=== PATIENT | female | born 1980 | race Caucasian/White ===

== ENCOUNTER 2016-06-22 18:30 | Emergency (ER) | payer OTHER | END 2016-06-22 20:12 | disposition left against medical advice (07) | LOC: UCCORT 18:30 | DX: R05 Cough (principal); R68.83 Chills (without fever); M79.1 Myalgia; Z53.21 Procedure and treatment not carried out due to patient leaving prior to being seen by health care provider | CPT/HCPCS: 99211; G0463 ==

== ENCOUNTER 2016-06-23 08:54 | Emergency (ER) | payer OTHER ==
[2016-06-23 09:23] VITALS: BP 117/86
--- NOTE | 2016-06-23 10:16 | UC ---
Throat Pain/Nasal Trey HPI - HPI Summary HPI Summary: complaint of nasal congestion, cough sore throat exhaustion, muscle achiness, headaches cold chills and shivering then sweating feels nauseous, denies vomiting and diarrhea took a cold and flu medication with minima relief of symptoms - History of Current Complaint Chief Complaint: UCRespiratory Stated Complaint: FLU SYMPTOMS Time Seen by Provider: 06/23/16 10:08 Hx Obtained From: Patient Hx Last Menstrual Period: 06/16/16 Cough: Nonproductive Associated Signs & Symptoms: Positive: Nasal Discharge - Allergies/Home Medications Allergies/Adverse Reactions: Allergies Allergy/AdvReac Type Severity Reaction Status Date / Time No Known Allergies Allergy Verified 06/23/16 09:19 Home Medications: Home Medications NK [No Home Medications Reported] 06/23/16 [History Confirmed 06/23/16] PMH/Surg Hx/FS Hx/Imm Hx Previously Healthy: Yes Endocrine History Of: Denies: Diabetes Cardiovascular History Of: Denies: Cardiac Disorders Respiratory History Of: Denies: Asthma - Surgical History Surgical History: Yes Surgery Procedure, Year, and Place: Tubal Ligation, 2014, [place] - Family History Known Family History: Negative: Cardiac Disease, Hypertension, Diabetes - Social History Occupation: Employed Full-time Lives: With Family Alcohol Use: None Substance Use Type: None Smoking Status (MU): Heavy Every Day Tobacco Smoker Type: Cigarettes Amount Used/How Often: <1 PPD Length of Time of Smoking/Using Tobacco: 20 Years Have You Smoked in the Last Year: Yes When Did the Patient Quit Smoking/Using Tobacco: 24 Years Household Exposure Type: Cigarettes - Immunization History Most Recent Influenza Vaccination: May 2016 Review of Systems Constitutional: Chills, Fatigue Skin: Negative Eyes: Negative ENT: Sore Throat, Nasal Discharge Respiratory: Cough Cardiovascular: Negative Gastrointestinal: Other - nausea Genitourinary: Negative Motor: Negative Neurovascular: Negative Musculoskeletal: Negative Neurological: Negative Psychological: Negative All Other Systems Reviewed And Are Negative: Yes Physical Exam Triage Information Reviewed: Yes Appearance: No Pain Distress, Well-Nourished Vital Signs: Initial Vital Signs Temp 98.3 F 06/23/16 09:16 Pulse 96 06/23/16 09:16 Resp 16 06/23/16 09:16 BP 117/86 06/23/16 09:16 Pulse Ox 98 06/23/16 09:16 Vital Signs Reviewed: Yes Eyes: Positive: Conjunctiva Clear ENT: Positive: Pharyngeal erythema, Nasal congestion, Nasal drainage, TMs normal. Negative: Tonsillar swelling, Tonsillar exudate Neck: Positive: No Lymphadenopathy Respiratory: Positive: Lungs clear, Normal breath sounds, No respiratory distress Cardiovascular: Positive: RRR, No Murmur, Pulses Normal Abdomen Description: Positive: Nontender, Soft Bowel Sounds: Positive: Present Musculoskeletal: Positive: No Edema Neurological: Positive: Alert Psychological Exam: Normal Skin Exam: Normal Throat Pain/Nasal Course/Dx - Course Course Of Treatment: exam completed. positive for influenza no signs of secondary infection. symptomatic treatment - Differential Dx/Diagnosis Differential Diagnosis/HQI/PQRI: Influenza, URI Provider Diagnoses: influenza Discharge - Discharge Plan Condition: Stable Disposition: HOME Patient Education Materials: Influenza (ED) Forms: *Work Release Referrals: No Primary Care Phys,NOPCP [Primary Care Provider] - [facility] [Outside] Additional Instructions: TREATING THE FLU (Influenza) What is the Flu? Influenza, or "flu," is an infection of the breathing tubes and lungs. Flu happens mostly in late fall, winter, or early spring. It is very easily spread from one person to another by coughing and sneezing. The flu affects people of all ages. Symptoms Might Include: Stuffed up or runny nose Cough which may be worse at night that lasts for one to two weeks Fever especially the first 2 days and which may go up and down Headache and muscle aches Mild sore throat Poor appetite Tiredness Influenza (Flu) Vaccine Much of the illness and caused by influenza can be prevented by annual flu vaccination. It is especially recommended for people who are at high risk. Those at higher risk include all people aged 65 years or older and people of any age with chronic diseases of the heart, lung or kidneys, diabetes, immunosuppression, or severe forms of anemia. Other high-risk groups are, women who will be more than 3 months during the flu season, and children. Treatment Recommendations: Take acetaminophen (Tylenol, etc.) for aches and fever. Do not ever give aspirin to children. Drink lots of fluids. Use a cool-mist humidifier night and day if it helps you. Keep room at a comfortable temperature for you. Do not overheat the room. Do not overdress. Do not smoke. Get as much rest as you can. Call Your Doctor or Return Here IF: You have a fever that lasts for more than three days. You have trouble breathing. You begin to cough up green, yellow, or red mucous. Your cough gets worse or you have chest pain with coughing or deep breathing. You start to have any other symptoms that worry you.
== END 2016-06-23 10:45 | disposition home or self-care (01) ==
LOC: UCCORT 08:54
DX: J11.1 Influenza due to unidentified influenza virus with other respiratory manifestations (principal); F17.210 Nicotine dependence, cigarettes, uncomplicated
CPT/HCPCS: 87502; 99211; G0463

== ENCOUNTER 2016-06-27 17:00 | Emergency (ER) | payer OTHER | END 2016-06-27 17:42 | disposition left against medical advice (07) | LOC: UCCORT 17:00 | DX: R19.7 Diarrhea, unspecified (principal); Z53.21 Procedure and treatment not carried out due to patient leaving prior to being seen by health care provider ==

== ENCOUNTER 2016-06-27 18:35 | Emergency (ER) | payer OTHER ==
[2016-06-27 19:19] VITALS: BP 124/83
[2016-06-27] MEDS ORDERED: Ondansetron ODT TAB* 4 MG PO ONE (20:13)
--- NOTE | 2016-06-27 20:17 | UC ---
UC General HPI - HPI Summary HPI Summary: flu last week was feelign better, developed vomiting and nasea, has chest congestion - History of Current Complaint Chief Complaint: UCGeneralIllness Stated Complaint: DIARRHEA, FEVER Time Seen by Provider: 06/27/16 20:08 Hx Obtained From: Patient Onset/Duration: Sudden Onset, Lasting Days Timing: Constant Onset Severity: Moderate Current Severity: Moderate - Allergy/Home Medications Allergies/Adverse Reactions: Allergies Allergy/AdvReac Type Severity Reaction Status Date / Time No Known Allergies Allergy Verified 06/27/16 19:18 PMH/Surg Hx/FS Hx/Imm Hx Previously Healthy: Yes Endocrine History Of: Denies: Diabetes Cardiovascular History Of: Denies: Cardiac Disorders Respiratory History Of: Denies: Asthma - Surgical History Surgical History: Yes Surgery Procedure, Year, and Place: Tubal Ligation, 2014, [place] - Family History Known Family History: Negative: Cardiac Disease, Hypertension, Diabetes - Social History Alcohol Use: None Substance Use Type: None Smoking Status (MU): Heavy Every Day Tobacco Smoker Type: Cigarettes Amount Used/How Often: <1 PPD Length of Time of Smoking/Using Tobacco: 20 Years Have You Smoked in the Last Year: Yes When Did the Patient Quit Smoking/Using Tobacco: 24 Years Household Exposure Type: Cigarettes - Immunization History Most Recent Influenza Vaccination: May 2016 Review of Systems Constitutional: Fever, Chills Eyes: Negative Respiratory: Cough Cardiovascular: Negative Gastrointestinal: Vomiting, Diarrhea Genitourinary: Negative Motor: Negative Neurovascular: Negative Musculoskeletal: Negative Neurological: Negative Psychological: Negative All Other Systems Reviewed And Are Negative: Yes Physical Exam Triage Information Reviewed: Yes Appearance: Well-Nourished, Ill-Appearing, Pain Distress Vital Signs: Initial Vital Signs Temp 98.2 F 06/27/16 19:14 Pulse 71 06/27/16 19:14 Resp 17 06/27/16 19:14 BP 124/83 06/27/16 19:14 Pulse Ox 100 06/27/16 19:14 Vital Signs Reviewed: Yes Eye Exam: Normal Eyes: Positive: Conjunctiva Clear ENT Exam: Normal ENT: Positive: Normal ENT inspection, Hearing grossly normal, Pharynx normal, TMs normal Dental Exam: Normal Neck exam: Normal Neck: Positive: Supple, Nontender, No Lymphadenopathy Respiratory Exam: Normal Respiratory: Positive: Chest non-tender, Lungs clear, Normal breath sounds Cardiovascular Exam: Normal Cardiovascular: Positive: RRR, No Murmur, Pulses Normal Abdomen Description: Positive: Nontender, No Organomegaly, Soft, Other: - epigastric tenderness, Bowel Sounds: Positive: Present Musculoskeletal Exam: Normal Musculoskeletal: Positive: Strength Intact, ROM Intact, No Edema Neurological Exam: Normal Neurological: Positive: Alert, Muscle Tone Normal Psychological Exam: Normal Skin Exam: Normal Course/Dx - Course Course Of Treatment: hx obtained, exam performed, meds given for nausea. - Differential Dx - Multi-Symptom Provider Diagnoses: nausea. vomiting Discharge - Discharge Plan Condition: Stable Disposition: HOME Prescriptions: Ondansetron [Zofran Odt] 4 mg PO Q8H PRN #28 tab PRN Reason: Nausea Patient Education Materials: Acute Nausea and Vomiting (ED) Forms: *Work Release Referrals: No Primary Care Phys,NOPCP [Primary Care Provider] - Additional Instructions: take the medication as prescribed, increase fluid intake as tolerated and get plenty of rest, I have included a note for work as needed.
== END 2016-06-27 20:40 | disposition home or self-care (01) ==
LOC: UCCORT 18:35
DX: R11.2 Nausea with vomiting, unspecified (principal); R09.89 Other specified symptoms and signs involving the circulatory and respiratory systems; Z87.891 Personal history of nicotine dependence
CPT/HCPCS: 99212; A9270-GY; G0463

== ENCOUNTER 2017-02-04 11:22 | Emergency (ER) | payer OTHER | END 2017-02-04 12:00 | disposition left against medical advice (07) | LOC: UCCORT 11:22 | DX: R09.81 Nasal congestion (principal); R05 Cough; J02.9 Acute pharyngitis, unspecified; Z53.21 Procedure and treatment not carried out due to patient leaving prior to being seen by health care provider ==

== ENCOUNTER 2017-02-11 16:09 | Emergency (ER) | payer OTHER ==
[2017-02-11 16:35] VITALS: BP 161/77
--- NOTE | 2017-02-11 17:04 | UC ---
Respiratory Complaint HPI - HPI Summary HPI Summary: 3 weeks of sinus pain headache nasal congestion nasal drip and cough - History of Current Complaint Chief Complaint: UCGeneralIllness Stated Complaint: COUGH,SINUS PRESSURE Time Seen by Provider: 02/11/17 16:39 Hx Obtained From: Patient Hx Last Menstrual Period: 06/17/16 ?: No Onset/Duration: Sudden Onset, Lasting Weeks - 3 Timing: Constant Severity Initially: Mild Severity Currently: Moderate Pain Intensity: 5 Pain Scale Used: 0-10 Numeric Character: Cough: Nonproductive Aggravating Factors: Nothing Alleviating Factors: Nothing Associated Signs And Symptoms: Positive: Nasal Congestion, Sinus Discomfort - Allergies/Home Medications Allergies/Adverse Reactions: Allergies Allergy/AdvReac Type Severity Reaction Status Date / Time No Known Allergies Allergy Verified 02/11/17 16:33 PMH/Surg Hx/FS Hx/Imm Hx Previously Healthy: Yes - Surgical History Surgical History: Yes Surgery Procedure, Year, and Place: Tubal Ligation, 2014, [place] - Family History Known Family History: Negative: Cardiac Disease, Hypertension, Diabetes - Social History Occupation: Unemployed Lives: With Family Alcohol Use: None Substance Use Type: None Smoking Status (MU): Heavy Every Day Tobacco Smoker Type: Cigarettes Amount Used/How Often: <1 PPD Length of Time of Smoking/Using Tobacco: 20 Years Have You Smoked in the Last Year: Yes Household Exposure Type: Cigarettes - Immunization History Most Recent Influenza Vaccination: May 2016 Review of Systems Constitutional: Negative Skin: Negative Eyes: Negative ENT: Negative Respiratory: Negative Cardiovascular: Negative Gastrointestinal: Negative Genitourinary: Negative Motor: Negative Neurovascular: Negative Musculoskeletal: Negative Neurological: Negative Psychological: Negative Is Patient Immunocompromised?: No All Other Systems Reviewed And Are Negative: Yes Physical Exam Triage Information Reviewed: Yes Appearance: Well-Appearing, No Pain Distress, Well-Nourished Vital Signs: Initial Vital Signs Temp 97.7 F 02/11/17 16:30 Pulse 82 02/11/17 16:30 Resp 14 02/11/17 16:30 BP 161/77 02/11/17 16:30 Pulse Ox 99 02/11/17 16:30 Vital Signs Reviewed: Yes Eye Exam: Normal Eyes: Positive: Conjunctiva Clear ENT Exam: Normal ENT: Positive: Normal ENT inspection, Hearing grossly normal, Pharynx normal, Nasal congestion, Nasal drainage, TMs normal. Negative: Tonsillar swelling, Tonsillar exudate, Trismus, Muffled/hoarse voice Dental Exam: Normal Neck exam: Normal Neck: Positive: Supple, Nontender, No Lymphadenopathy Respiratory Exam: Normal Respiratory: Positive: Chest non-tender, Lungs clear, Normal breath sounds, No respiratory distress, No accessory muscle use Cardiovascular Exam: Normal Cardiovascular: Positive: RRR, No Murmur, Pulses Normal, Brisk Capillary Refill Abdominal Exam: Normal Abdomen Description: Positive: Nontender, No Organomegaly, Soft Bowel Sounds: Positive: Present Musculoskeletal Exam: Normal Musculoskeletal: Positive: Strength Intact, ROM Intact, No Edema Neurological Exam: Normal Neurological: Positive: Alert, Muscle Tone Normal Psychological Exam: Normal Skin Exam: Normal UC Diagnostic Evaluation - Laboratory O2 Sat by Pulse Oximetry: 99 Respiratory Course/Dx - Course Course Of Treatment: Augmentin, flonase, increase fluids, follow with pcp - Differential Dx/Diagnosis Differential Diagnosis/HQI/PQRI: Bronchitis, Exacerbation Of COPD, Lower Resp Infection, MRSA, Sinusitis, Tuberculosis Provider Diagnoses: Acute rhinosinusitis Discharge - Discharge Plan Condition: Stable Disposition: HOME Prescriptions: Amoxicillin/Clavulanate TAB* [Augmentin TAB 875*] 875 mg PO BID #20 tab Fluticasone NASAL SPRAY 50MCG* [Flonase NASAL SPRAY 50MCG*] 2 spray BOTH NARES DAILY #1 btl Patient Education Materials: Sinusitis (ED), Hypertension (ED), How to Use Nasal [place] (ED) Referrals: [facility] [[facility]] - 2 Weeks
== END 2017-02-11 17:26 | disposition home or self-care (01) ==
LOC: UCCORT 16:09
DX: J01.90 Acute sinusitis, unspecified (principal); F17.210 Nicotine dependence, cigarettes, uncomplicated
CPT/HCPCS: 99212; G0463

== ENCOUNTER 2017-08-03 09:00 | Emergency (ER) | payer OTHER ==
[2017-08-03 09:35] VITALS: BP 117/62
--- NOTE | 2017-08-03 09:55 | UC ---
Throat Pain/Nasal Trey HPI - HPI Summary HPI Summary: 37 year old female with throat complaint. WOKE UP THIS MORNING WITH A SWOLLEN UVULA. took antihistamine and may have helped NO ISSUES BREATHING OR SWALLOWING THOUGH IT IS UNCOMFORTABLE TO SWALLOW. no SOB. No throat closing sensation. no ST. no fever. (+) children with GI bug at home. start metformin 3 days ago . no rash. no GI distress [ End ] - History of Current Complaint Chief Complaint: UCGeneralIllness Stated Complaint: SWOLLEN THROAT Time Seen by Provider: 08/03/17 09:48 Hx Obtained From: Patient Hx Last Menstrual Period: 07/30/17 ?: No Onset/Duration: Sudden Onset Pain Intensity: 0 Cough: Nonproductive - Allergies/Home Medications Allergies/Adverse Reactions: Allergies Allergy/AdvReac Type Severity Reaction Status Date / Time No Known Allergies Allergy Verified 02/11/17 16:33 Home Medications: Home Medications Oral Diabetetic Med 08/03/17 [History] diphenhydrAMINE HCl [Benadryl Allergy] 08/03/17 [History] PMH/Surg Hx/FS Hx/Imm Hx Previously Healthy: Yes Endocrine History: Diabetes - pre-DM - Surgical History Surgical History: Yes Surgery Procedure, Year, and Place: Tubal Ligation, 2014, [place] - Family History Known Family History: Negative: Cardiac Disease, Hypertension, Diabetes - Social History Occupation: Employed Full-time Lives: With Family Alcohol Use: None Substance Use Type: None Smoking Status (MU): Heavy Every Day Tobacco Smoker Type: Cigarettes Amount Used/How Often: <1 PPD Length of Time of Smoking/Using Tobacco: 20 Years Have You Smoked in the Last Year: Yes When Did the Patient Quit Smoking/Using Tobacco: 24 Years Household Exposure Type: Cigarettes Cessation Counseling: Patient Advised to Stop - Immunization History Most Recent Influenza Vaccination: May 2016 Review of Systems ENT: Other - swollen uvula Is Patient Immunocompromised?: No All Other Systems Reviewed And Are Negative: Yes Physical Exam Triage Information Reviewed: Yes Appearance: Well-Appearing, No Pain Distress, Well-Nourished Vital Signs: Initial Vital Signs Temp 97.8 F 08/03/17 09:26 Pulse 81 08/03/17 09:26 Resp 16 08/03/17 09:26 BP 117/62 08/03/17 09:26 Pulse Ox 99 03/22/18 09:26 Vital Signs Reviewed: Yes Eye Exam: Normal ENT: Positive: Tonsillar swelling, Uvula midline - moderately swollen. Negative : Pharyngeal erythema, Tonsillar exudate Neck exam: Normal Respiratory Exam: Normal Cardiovascular Exam: Normal Musculoskeletal Exam: Normal Neurological Exam: Normal Psychological Exam: Normal Skin Exam: Normal Throat Pain/Nasal Course/Dx - Course Course Of Treatment: pt aware of sx worsen then go to ED she is agreeable - Differential Dx/Diagnosis Differential Diagnosis/HQI/PQRI: Laryngitis, Peritonsillar Abscess, Pharyngitis , Tonsillitis, URI Provider Diagnoses: uvulitis Discharge - Sign-Out/Discharge Documenting (check all that apply): Discharge - Discharge Plan Condition: Good Disposition: HOME Prescriptions: Loratadine 10 mg PO DAILY #14 tablet methylPREDNISolone [Medrol Dosepak 4 MG*] 0 mg PO .SEE KLARISSA INSTRUCTION #1 tab Patient Education Materials: Uvulitis (ED) Referrals: Cece Simmons MD [Primary Care Provider] - 1 Day (Keep your appt please ) - Billing Disposition and Condition Condition: GOOD Disposition: HOME
== END 2017-08-03 10:11 | disposition home or self-care (01) ==
LOC: UCCORT 09:00
DX: F17.210 Nicotine dependence, cigarettes, uncomplicated (principal); R73.03 Prediabetes; Z79.84 Long term (current) use of oral hypoglycemic drugs; K12.2 Cellulitis and abscess of mouth
CPT/HCPCS: 99212; G0463

== ENCOUNTER 2017-10-28 11:50 | Emergency (ER) | payer OTHER ==
[2017-10-28 12:08] VITALS: BP 126/87
--- NOTE | 2017-10-28 13:19 | UC ---
Lower Extremity/Ankle HPI - HPI Summary HPI Summary: Pt c/o bilateral ankle pain after standing for prolonged periods of time. Pt has history of varicose vein in left inner leg from thigh to mid calf. Pt states that it has been more painful than usual over the last 1-2 weeks. - History of Current Complaint Chief Complaint: YOVANAkin Stated Complaint: LEFT LEG PAIN/BILATERAL ANKLE PAIN Time Seen by Provider: 10/28/17 12:27 Hx Obtained From: Patient Hx Last Menstrual Period: 09/27/17 Onset/Duration: Gradual Onset, Lasting Weeks, Still Present Severity Initially: Mild Severity Currently: Moderate Pain Intensity: 6 Pain Scale Used: 0-10 Numeric Aggravating Factor(s): Standing, Ambulation Alleviating Factor(s): Rest, Elevation, Ice Able to Bear Weight: Yes - Risk Factors Gout Risk Factors: Obesity DVT Risk Factors: Smoking - Allergies/Home Medications Allergies/Adverse Reactions: Allergies Allergy/AdvReac Type Severity Reaction Status Date / Time No Known Allergies Allergy Verified 10/28/17 12:08 PMH/Surg Hx/FS Hx/Imm Hx Previously Healthy: Yes - Surgical History Surgical History: Yes Surgery Procedure, Year, and Place: Tubal Ligation, 2014, [place] - Family History Known Family History: Negative: Cardiac Disease, Hypertension, Diabetes - Social History Occupation: Employed Full-time Lives: With Family Alcohol Use: None Substance Use Type: None Smoking Status (MU): Heavy Every Day Tobacco Smoker Type: Cigarettes Amount Used/How Often: <1 PPD Length of Time of Smoking/Using Tobacco: 20 Years Have You Smoked in the Last Year: Yes When Did the Patient Quit Smoking/Using Tobacco: 24 Years Household Exposure Type: Cigarettes - Immunization History Most Recent Influenza Vaccination: May 2016 Review of Systems Constitutional: Negative Skin: Negative Eyes: Negative ENT: Negative Respiratory: Negative Cardiovascular: Negative Gastrointestinal: Negative Genitourinary: Negative Motor: Negative Neurovascular: Negative Musculoskeletal: Arthralgia, Myalgia Neurological: Negative Psychological: Negative Is Patient Immunocompromised?: No All Other Systems Reviewed And Are Negative: Yes Physical Exam Triage Information Reviewed: Yes Appearance: Well-Appearing Vital Signs: Initial Vital Signs Temp 98.2 F 10/28/17 12:02 Pulse 84 10/28/17 12:02 Resp 18 10/28/17 12:02 BP 126/87 10/28/17 12:02 Pulse Ox 99 10/28/17 12:02 Vital Signs Reviewed: Yes Eye Exam: Normal ENT Exam: Normal ENT: Positive: Hearing grossly normal Neck exam: Normal Respiratory: Positive: No respiratory distress Musculoskeletal Exam: Other Musculoskeletal: Positive: Other: - left inner lower extremity, bulging, vessel , non thrombosed. non tender. Pt c/o discomfort at proximal, medial foot, distal end of calcaneous. Neurological Exam: Normal Psychological Exam: Normal Skin Exam: Normal Lower Extremity Course/Dx - Differential Dx/Diagnosis Differential Diagnosis/HQI/PQRI: Other - varicose vein ankle/foot pain, arthralgia Provider Diagnoses: bilateral arthralgia. left lower extremity varicose vein. Discharge - Sign-Out/Discharge Documenting (check all that apply): Discharge/Admit/Transfer - Discharge Plan Condition: Stable Disposition: HOME Patient Education Materials: Ice Pack Application (ED), Leg Pain (ED), Metatarsalgia (DC) Forms: *Work Release Referrals: Derrell Lora [Medical Doctor] - Cece Simmons MD [Primary Care Provider] - Calvin Chang MD [Medical Doctor] - Jenelle Khan MD [Medical Doctor] - - Billing Disposition and Condition Condition: STABLE Disposition: Home
== END 2017-10-28 12:47 | disposition home or self-care (01) ==
LOC: UCCORT 11:50
DX: M25.572 Pain in left ankle and joints of left foot (principal); M25.571 Pain in right ankle and joints of right foot; M79.662 Pain in left lower leg; I83.92 Asymptomatic varicose veins of left lower extremity; F17.210 Nicotine dependence, cigarettes, uncomplicated
CPT/HCPCS: 99212; G0463

== ENCOUNTER 2018-12-25 13:56 | Emergency (ER) | payer OTHER ==
[2018-12-25 14:14] VITALS: BP 152/104
--- NOTE | 2018-12-25 14:22 | UC ---
UC General HPI - HPI Summary HPI Summary: pt is c/o a 2 - 3 hx of episodic abdominal cramping with nausea and her stomach feeling "upset". during this time she has vomited a couple of times. she denies diarrhea but notes her BM's have gone from normal to very small and she has to strain. no fever, diarrhea, pale/bloody stools. no hx IBD. at onset, pt did go to the ER for an evaluation. they advised she f/u with her pcp. pt has tried to f/u with her pcp; however, they have no openings for the next month. - History of Current Complaint Chief Complaint: UCGI Stated Complaint: UPSET STOMACH,NAUSEA Time Seen by Provider: 12/25/18 14:02 Hx Obtained From: Patient Hx Last Menstrual Period: 09/27/17 Pain Intensity: 4 Alleviating: food - Allergy/Home Medications Allergies/Adverse Reactions: Allergies Allergy/AdvReac Type Severity Reaction Status Date / Time No Known Allergies Allergy Verified 12/25/18 14:08 Home Medications: Home Medications Bupropion XL* [Wellbutrin XL *] 1 dose PO DAILY 12/25/18 [History Confirmed ] Cholecalciferol (Vitamin D3) [Vitamin D3] 1,000 unit PO DAILY 12/25/18 [History Confirmed 12/25/18] Depression Medication 1 dose PO DAILY 12/25/18 [History Confirmed 12/25/18] PMH/Surg Hx/FS Hx/Imm Hx Psychological History: Depression - Surgical History Surgical History: Yes Surgery Procedure, Year, and Place: Tubal Ligation, 2014, [place] - Family History Known Family History: Positive: Other - Fathers side has no bowel pathology, mothers side is unknown Negative: Cardiac Disease, Hypertension, Diabetes - Social History Occupation: Employed Full-time Alcohol Use: None Substance Use Type: None Smoking Status (MU): Heavy Every Day Tobacco Smoker Type: Cigarettes Amount Used/How Often: 7 cigarettes daily Length of Time of Smoking/Using Tobacco: 20 Years Have You Smoked in the Last Year: Yes When Did the Patient Quit Smoking/Using Tobacco: 24 Years Household Exposure Type: Cigarettes - Immunization History Most Recent Influenza Vaccination: May 2016 Review of Systems All Other Systems Reviewed And Are Negative: Yes Constitutional: Negative: Fever, Chills Gastrointestinal: Positive: Abdominal Pain - "cramping", Vomiting - twice over 2 -3 weeks, Nausea. Negative: Diarrhea Physical Exam Triage Information Reviewed: Yes Appearance: Well-Appearing Vital Signs: Initial Vital Signs Temp 98.8 F 12/25/18 14:08 Pulse 71 12/25/18 14:08 Resp 15 12/25/18 14:08 BP 152/104 12/25/18 14:08 Pulse Ox 98 12/25/18 14:08 Vital Signs Reviewed: Yes Eyes: Positive: Conjunctiva Clear ENT: Positive: Normal ENT inspection Neck: Positive: Supple Respiratory: Positive: Lungs clear, Normal breath sounds Cardiovascular: Positive: RRR, No Murmur Abdomen Description: Positive: Nontender, No Organomegaly, Soft. Negative: Distended, Guarding Bowel Sounds: Positive: Hyperactive Musculoskeletal: Positive: ROM Intact Neurological: Positive: Alert Psychological: Positive: Age Appropriate Behavior Skin Exam: Normal Diagnostics - Laboratory Lab Results: u/a=unremarkable(see report). urine hcg=negative Course/Dx - Differential Dx - Multi-Symptom Differential Diagnoses: Other - non toxic. no acute abdomen. u/a and hcg are negative. pt has already been to the ER and is unable to see her pcp for a month thus will refer to GI. Pt instructed to return to the ER for any changes of worsening. - Diagnoses Provider Diagnosis: Nausea, Abdominal cramping Discharge - Sign-Out/Discharge Documenting (check all that apply): Patient Departure All imaging exams completed and their final reports reviewed: No Studies - Discharge Plan Condition: Stable Disposition: HOME Patient Education Materials: Acute Nausea and Vomiting (ED), Acute Abdominal Pain (DC) Referrals: Cece Galvez MD [Primary Care Provider] - As Soon As Possible [facility] [Provider Group] - As Soon As Possible Additional Instructions: FOLLOW UP DR GALVEZ FOR A BP RECHECK. FOLLOW UP WITH GASTROENTEROLOGY SOON POSSIBLE. GO TO AN ER FOR ANY WORSENING. - Billing Disposition and Condition Condition: STABLE Disposition: Home
== END 2018-12-25 14:50 | disposition home or self-care (01) ==
LOC: UCCORT 13:56
DX: R11.0 Nausea (principal); R10.9 Unspecified abdominal pain; F32.89 Other specified depressive episodes; F17.210 Nicotine dependence, cigarettes, uncomplicated
CPT/HCPCS: 81003; 84702; 99211; G0463

== ENCOUNTER 2019-01-13 14:51 | Emergency (ER) | payer OTHER ==
--- OUTSIDE RECORDS SUMMARY | 2019-01-13 14:59 | XMS REPORT | Continuity of Care Document ---
:1980 External Reference #:[id number] Author Name Marisol Saenz Care Team Providers Name Role Phone Cece Simmons M.D. - Internal Medicine Care Team Information Practicing Dermatologist Problems Description No Information Available Social History Type Date Description Comments Sex Unknown ETOH Use Denies alcohol use Tobacco Use Start: Unknown Patient is a current 8 cigarettes daily smoker, smokes every day Recreational Drug Use Denies Drug Use Smoking Status Reviewed: 12/31/18 Patient is a current 8 cigarettes daily smoker, smokes every day Exercise Type/Frequency Exercises regularly Works as a [employer] so is active work [employer] [facility] Allergies, Adverse Reactions, Alerts Description No Known Drug Allergies Medications Active Medications SIG Qnty Indications Ordering Date Provider Ondansetron take 1 or 2 30tabs Priscila Shelton NP 12/31/2018 4mg Tablets tablets for Dispers nausea Prilosec OTC one tablet in am 90tabs Priscila Shelton NP 12/31/2018 20mg Tablets 1/[address] breakfast Bupropion Take One Tablet Unknown Hydrochloride ER (XL) By Mouth Every Day 150mg Tablets ER 24HR Vitamin D3 Unknown 1000Unit Tablets Immunizations Description No Information Available Vital Signs Date Vital Result Comment 12/31/2018 1:31pm Height 67 inches 5'7" Weight 234.00 lb Heart Rate 78 /min BP Systolic 132 mmHg BP Diastolic 86 mmHg O2 % BldC Oximetry 98 % BMI (Body Mass Index) 36.6 kg/m2 Results Test Date Facility Test Result H/L Range Note CBC No Diff 12/31/2018 [facility] White Blood 7.5 10^3/uL Normal 3.5-10.[address] [place] [address] [phone] Red Blood Count 4.68 10^6/uL Normal 3.70-4.87 Hemoglobin 14.4 g/dL Normal 12.0-16.0 Hematocrit 43 % Normal 35-47 Mean Corpuscular Volume 91 fL Normal 80-97 Mean Corpuscular Hemoglobin 31 pg Normal 27-31 Mean Corpuscular HGB Conc 34 g/dL Normal 31-36 Red Cell Distribution Width 13 % Normal 10-15 Platelet Count 283 10^3/uL Normal 150-450 Mean Platelet Volume 7.7 fL Normal 7.4-10.4 Comp Metabolic 12/31/2018 [facility] Sodium 141 mmol/L Normal 135-145 Panel [address] [place] [address] [phone] Potassium 4.1 mmol/L Normal 3.5-5.0 Chloride 105 mmol/L Normal 101-111 Co2 Carbon Dioxide 26 mmol/L Normal 22-32 Anion Gap 10 mmol/L Normal 2-11 Glucose 80 mg/dL Normal 70-100 Blood Urea Nitrogen 12 mg/dL Normal 6-24 Creatinine 0.66 mg/dL Normal 0.51-0.95 BUN/Creatinine Ratio 18.2 Normal 8-20 Calcium 9.3 mg/dL Normal 8.6-10.3 Total Protein 6.6 g/dL Normal 6.4-8.9 Albumin 4.2 g/dL Normal 3.2-5.2 Globulin 2.4 g/dL Normal 2-4 Albumin/Globulin Ratio 1.8 Normal 1-3 Total Bilirubin 0.40 mg/dL Normal 0.2-1.0 Alkaline Phosphatase 50 U/L Normal 34-104 Alt 15 U/L Normal 7-52 Ast 11 U/L Low 13-39 Egfr Non- 100.8 >60 Egfr 121.9 >60 1 Laboratory test finding 12/31/2018 [facility] Amylase 26 U/L Low 29-103 [address] [place] [address] [phone] Lipase 21 U/L Normal 11.0-82.0 Hemoglobin A1c (Glyco HGB) 5.8 % High 4.0-5.6 2 1 Because ethnic data is not always readily available, this report includes an eGFR for both -Americans and non- Americans. The National Kidney Disease Education Program (NKDEP) does not endorse the use of the MDRD equation for patients that are not between the ages of 18 and 70, are , have extremes of body size, muscle mass, or nutritional status, or are non- or non-. According to the National Kidney Foundation, irrespective of diagnosis, the stage of the disease is based on the level of kidney function: Stage Description GFR(mL/min/1.73 m(2)) 1 Kidney damage with normal or decreased GFR 90 2 Kidney damage with mild decrease in GFR 60-89 3 Moderate decrease in GFR 30-59 4 Severe decrease in GFR 15-29 5 Kidney failure <15 (or dialysis) 2 Therapeutic target for the treatment of diabetes mellitus patients is <7% HBA1C, and in selective patients <6.0%. Please refer to [place] Diabetes Association diabetic care guidelines for further information. Procedures Description No Information Available Medical Devices Description No Information Available Encounters Description No Information Available Assessments Date Code Description Provider 12/31/2018 K59.00 Constipation, unspecified Priscila Shelton NP 12/31/2018 R10.13 Epigastric pain Priscila Shelton NP 12/31/2018 K80.20 Calculus of gallbladder without cholecystitis Priscila Shelton NP without obstruction Plan of Treatment Future Appointment(s):01/21/2019 2:00 pm - Priscila Shelton NP at [facility] Khzagaveokxkbobb55/19/2019 - Priscila Shelton NPK59.00 Constipation, nkmwzvacpbvR38.13 Epigastric painK80.20 Calculus of gallbladder w/o cholecystitis w/o obstruction Functional Status Description No Information Available Mental Status Description No Information Available Referrals Description No Information Available
--- OUTSIDE RECORDS SUMMARY | 2019-01-13 14:59 | XMS REPORT | Continuity of Care Document ---
:1980 External Reference #:[id number] Author Name Priscila Shelton NP (transmitted by agent of provider eHrbie Hedrick) Address [address] [place] [address] Care Team Providers Name Role Phone Cece Simmons M.D. - Internal Medicine Care Team Information Academic Records Specialist Problems Description No Information Available Social History Type Date Description Comments Sex Unknown ETOH Use Denies alcohol use Tobacco Use Start: Unknown Patient is a current 8 cigarettes daily smoker, smokes every day Recreational Drug Use Denies Drug Use Smoking Status Reviewed: 12/31/18 Patient is a current 8 cigarettes daily smoker, smokes every day Exercise Type/Frequency Exercises regularly Works as a [employer]PER[employer]OR so is active work - [employer] Allergies, Adverse Reactions, Alerts Description No Known Drug Allergies Medications Active Medications SIG Qnty Indications Ordering Provider Date Ondansetron take 1 or 2 30tabs Priscila Shelton NP 12/31/2018 4mg Tablets tablets for Dispers nausea Bupropion Take One Tablet Unknown Hydrochloride ER (XL) By Mouth Every Day 150mg Tablets ER 24HR Escitalopram Oxalate Nalini, 10mg MD Palma Tablets Vitamin D3 Unknown 1000Unit Tablets Immunizations Description No Information Available Vital Signs Date Vital Result Comment 12/31/2018 1:31pm Height 67 inches 5'7" Weight 234.00 lb Heart Rate 78 /min BP Systolic 132 mmHg BP Diastolic 86 mmHg O2 % BldC Oximetry 98 % BMI (Body Mass Index) 36.6 kg/m2 Results Description No Information Available Procedures Description No Information Available Medical Devices Description No Information Available Encounters Type Date Location Provider Dx Diagnosis Office Visit 12/31/2018 [employer] [facility] Priscila Shelton, K59.00 Constipation, [facility] unspecified R10.13 Epigastric pain K80.20 Calculus of gallbladder w/o cholecystitis w/o obstruction Assessments Date Code Description Provider 12/31/2018 K59.00 Constipation, unspecified Priscila Shelton NP 12/31/2018 R10.13 Epigastric pain Priscila Shelton NP 12/31/2018 K80.20 Calculus of gallbladder without cholecystitis Priscila Shelton NP without obstruction Plan of Treatment Future Appointment(s):01/21/2019 2:00 pm - Priscila Shelton NP at [facility] Phwjxrxstcogdxej21/19/2019 - Priscila Shelton NPK59.00 Constipation, unspecifiedNew Labs:CBC No Diff, Ordered: 12/31/18Comp Metabolic Panel, Ordered : 12/31/18Amylase, Ordered: 12/31/18Lipase, Ordered: 12/31/18Hemoglobin A1c ( Glyco HGB), Ordered: 12/31/18R10.13 Epigastric painK80.20 Calculus of gallbladder w/o cholecystitis w/o obstruction Functional Status Description No Information Available Mental Status Description No Information Available Referrals Description No Information Available
[2019-01-13] MEDS ORDERED: Acetaminophen TAB* 325 MG PO ONE (15:34)
[2019-01-13 15:36] VITALS: BP 139/80
--- NOTE | 2019-01-13 15:44 | UC ---
Throat Pain/Nasal Trey HPI - HPI Summary HPI Summary: Pt presents with c/o sudden onset of ST, fever, chills, fatigue and body aches that began last night. - History of Current Complaint Chief Complaint: UCGeneralIllness Stated Complaint: SORE THROAT Time Seen by Provider: 01/13/19 15:39 Hx Obtained From: Patient Hx Last Menstrual Period: 01/01/19 ?: No Onset/Duration: Sudden Onset, Lasting Hours, Still Present Severity: Severe Pain Intensity: 6 Cough: None Associated Signs & Symptoms: Positive: Dysphagia, Fever - Epiglottits Risk Factors Epiglottis Risk Factors: Sudden Onset - Allergies/Home Medications Allergies/Adverse Reactions: Allergies Allergy/AdvReac Type Severity Reaction Status Date / Time No Known Allergies Allergy Verified 12/25/18 14:08 PMH/Surg Hx/FS Hx/Imm Hx Previously Healthy: Yes - Surgical History Surgical History: Yes Surgery Procedure, Year, and Place: Tubal Ligation, 2014, [place] - Family History Known Family History: Positive: Other - Fathers side has no bowel pathology, mothers side is unknown Negative: Cardiac Disease, Hypertension, Diabetes - Social History Occupation: Employed Full-time Lives: With Family Alcohol Use: None Substance Use Type: None Smoking Status (MU): Heavy Every Day Tobacco Smoker Type: Cigarettes Amount Used/How Often: 7 cigarettes daily Length of Time of Smoking/Using Tobacco: 20 Years Have You Smoked in the Last Year: Yes When Did the Patient Quit Smoking/Using Tobacco: 24 Years Household Exposure Type: Cigarettes - Immunization History Most Recent Influenza Vaccination: May 2016 Review of Systems All Other Systems Reviewed And Are Negative: Yes Constitutional: Positive: Negative, Fever, Chills, Fatigue Skin: Positive: Negative Eyes: Positive: Negative ENT: Positive: Sore Throat Respiratory: Positive: Negative Cardiovascular: Positive: Negative Gastrointestinal: Positive: Negative Genitourinary: Positive: Negative Motor: Positive: Negative Musculoskeletal: Positive: Myalgia Neurological: Positive: Negative Psychological: Positive: Negative Is Patient Immunocompromised?: No Physical Exam Triage Information Reviewed: Yes Appearance: Ill-Appearing Vital Signs: Initial Vital Signs Temp 103.3 F 01/13/19 15:31 Pulse 125 01/13/19 15:31 Resp 16 01/13/19 15:31 BP 139/80 01/13/19 15:31 Pulse Ox 99 01/13/19 15:31 Vital Signs Reviewed: Yes Eye Exam: Normal ENT: Positive: Tonsillar swelling, Tonsillar exudate Dental Exam: Normal Neck exam: Normal Respiratory Exam: Normal Cardiovascular: Positive: Tachycardia Musculoskeletal Exam: Normal Neurological Exam: Normal Psychological Exam: Normal Skin Exam: Normal Throat Pain/Nasal Course/Dx - Differential Dx/Diagnosis Differential Diagnosis/HQI/PQRI: Mononucleosis, Peritonsillar Abscess, Tonsillitis Provider Diagnosis: Strep throat Discharge ED - Sign-Out/Discharge Documenting (check all that apply): Patient Departure All imaging exams completed and their final reports reviewed: No Studies - Discharge Plan Condition: Stable Disposition: HOME Prescriptions: Penicillin VK 500 MG TAB(NF) [Penicillin VK 500 mg Tab] 500 mg PO Q6H #40 tab Patient Education Materials: Strep Throat (ED), Safe Use of NSAIDs (ED) Forms: *Work Release Referrals: Cece Simmons MD [Primary Care Provider] - If Needed - Billing Disposition and Condition Condition: STABLE Disposition: Home - Attestation Statements Provider Attestation: I was available for consult. This patient was seen by the AMILCAR. The patient was not presented to , seen by or examined by mi -Kyle Alejo MD
== END 2019-01-13 15:58 | disposition home or self-care (01) ==
LOC: UCCORT 14:51
DX: J02.0 Streptococcal pharyngitis (principal); F17.210 Nicotine dependence, cigarettes, uncomplicated
CPT/HCPCS: 87651; 99212; A9270-GY; G0463

== ENCOUNTER 2019-02-02 07:55 | Emergency (ER) | payer OTHER ==
[2019-02-02 08:13] VITALS: BP 133/87
--- NOTE | 2019-02-02 08:28 | UC ---
Skin Complaint HPI - HPI Summary HPI Summary: Pt presents with c/o sudden onset of "rash" on bilateral lower legs and "bruising" feeling. that began today at ~0500. Pt denies injury, recent trauma, or known contact with known allergens. Pt is denies any pmh of contributory significance. - History of Current Complaint Chief Complaint: UCRash Time Seen by Provider: 02/02/19 08:01 Stated Complaint: RASH Hx Obtained From: Patient Hx Last Menstrual Period: 01/31/19 ?: No Onset/Duration: Sudden Onset, Still Present Skin Exposure Onset/Duration: Hours Ago Timing: Constant Onset Severity: Mild Current Severity: Mild Pain Intensity: 6 Location: Generalized - bialteral lower extremities Character: Redness, Raised, Painful Aggravating Factor(s): Other - palpation to lower extremities and ambulating Alleviating Factor(s): Unknown Associated Signs & Symptoms: Positive: Rash - Allergy/Home Medications Allergies/Adverse Reactions: Allergies Allergy/AdvReac Type Severity Reaction Status Date / Time No Known Allergies Allergy Verified 02/02/19 08:02 Home Medications: Home Medications buPROPion HCl [Wellbutrin Sr] 02/02/19 [History] PMH/Surg Hx/FS Hx/Imm Hx Previously Healthy: Yes - Surgical History Surgical History: Yes Surgery Procedure, Year, and Place: Tubal Ligation, 2014, [place]. sinuses 2018 - Family History Known Family History: Positive: Other - Fathers side has no bowel pathology, mothers side is unknown Negative: Cardiac Disease, Hypertension, Diabetes - Social History Occupation: Employed Full-time Lives: With Family Alcohol Use: None Substance Use Type: None Smoking Status (MU): Heavy Every Day Tobacco Smoker Type: Cigarettes Amount Used/How Often: 7 cigarettes daily Length of Time of Smoking/Using Tobacco: 20 Years Have You Smoked in the Last Year: Yes When Did the Patient Quit Smoking/Using Tobacco: 24 Years Household Exposure Type: Cigarettes - Immunization History Most Recent Influenza Vaccination: May 2016 Review of Systems All Other Systems Reviewed And Are Negative: Yes Constitutional: Positive: Negative Skin: Positive: Rash - bialteral lower extremities Eyes: Positive: Negative ENT: Positive: Negative Respiratory: Positive: Negative Cardiovascular: Positive: Negative Gastrointestinal: Positive: Negative Genitourinary: Positive: Negative Motor: Positive: Negative Neurovascular: Positive: Negative Musculoskeletal: Positive: Myalgia Neurological: Positive: Negative Psychological: Positive: Negative Is Patient Immunocompromised?: No Physical Exam Triage Information Reviewed: Yes Appearance: Well-Appearing Vital Signs: Initial Vital Signs Temp 97.2 F 02/02/19 08:03 Pulse 85 02/02/19 08:03 Resp 18 02/02/19 08:03 BP 133/87 02/02/19 08:03 Pulse Ox 100 02/02/19 08:03 Vital Signs Reviewed: Yes Eye Exam: Normal ENT: Positive: Hearing grossly normal Dental Exam: Normal Neck exam: Normal Respiratory: Positive: No respiratory distress Musculoskeletal Exam: Normal Musculoskeletal: Positive: Strength Intact, ROM Intact, Other: - c/o aching pain lateral lower extremities, no calf tenderness, no red streaking Neurological Exam: Normal Psychological Exam: Normal Skin: Positive: Rashes - pin prick , raised, scattered, no cielo tracts. Course/Dx - Differential Diagnoses - Skin Complaint Differential Diagnoses: Cellulitis - Diagnoses Provider Diagnosis: Folliculitis, Pain in the shins, Bilateral calf pain Discharge ED - Sign-Out/Discharge Documenting (check all that apply): Patient Departure All imaging exams completed and their final reports reviewed: No Studies - Discharge Plan Condition: Stable Disposition: HOME Patient Education Materials: Folliculitis (ED), Leg Pain (ED) Referrals: Cece Simmons MD [Primary Care Provider] - If Needed Additional Instructions: Please follow up with your PCP as needed. Prior to using NSAIDS, please check with your surgeon if that is recommended prior to surgery. If your symptoms worsen, please go directly to the closest emergency room. - Billing Disposition and Condition Condition: STABLE Disposition: Home
== END 2019-02-02 08:37 | disposition home or self-care (01) ==
LOC: UCCORT 07:55
DX: L73.9 Follicular disorder, unspecified (principal); M79.662 Pain in left lower leg; M79.661 Pain in right lower leg; F17.210 Nicotine dependence, cigarettes, uncomplicated
CPT/HCPCS: 99211; G0463